=== PATIENT | female | born 1960 | race Caucasian/White ===

== ENCOUNTER 2022-07-29 19:26 | Emergency (ER) | payer BC, SELFPAY ==
[2022-07-29 19:33] VITALS: BP 168/91; PULSE 89; RESP 18; TEMP 36.4; O2SAT 95; BMI 33.6
--- NOTE | 2022-07-29 20:50 | ED_ITS ---
HPI - General Adult General Chief complaint: Ear Stated complaint: Left ear infection Time Seen by Provider: 07/29/22 20:41 Source: patient Mode of arrival: Ambulatory History of Present Illness HPI narrative: 62-year-old woman currently visiting with 3-4 days of mild upper respiratory symptoms of the stuffy nose, mild cough perhaps low-grade temperature today and over the last 48 hours has been having left ear pain. It started is not itching and now has gotten to be significantly worse to the point where the pain is making her nauseated. She has not had significant problems with inner ear issues. She has had success with sinus issues in in the past using saline sinus washes previously. She describes no chest pain, palpitations, abdominal pain, diarrhea. Related Data Previous Rx's Medication Instructions Recorded amoxicillin 500 mg capsule 500 mg PO TID #21 caps 07/29/22 Review of Systems Review of Systems Narrative: Remainder of complete review of systems is otherwise unremarkable except for that included in the HPI. Patient History Social History Smoking Status: Never smoker Smoking Status: Never smoker Exam Initial Vital Signs Initial Vital Signs: Vital Signs Temperature 97.6 F 07/29/22 19:33 Pulse Rate 89 07/29/22 19:33 Respiratory Rate 18 07/29/22 19:33 Blood Pressure 168/91 H 07/29/22 19:33 Pulse Oximetry 95 07/29/22 19:33 Oxygen Delivery Method 07/29/22 19:33 General: Alert appropriate in mild pain HEENT: Nasal congestion, left tympanic membrane is red and bulging without rupture or inner ear discharge, right TM is normal. There is no TMJ tenderness. She has no significant pharyngeal erythema or exudate. No cervical adenopathy. Respiratory: Able to speak in full sentences, no wheezing, no obvious respiratory distress Skin: No obvious rashes, warm and dry Neurologic: Grossly intact no obvious asymmetries or abnormalities Psych: appropriate insight and affect, cooperative Course Vital Signs Vital signs: Vital Signs - 8 hr 07/29/22 19:33 Temperature 97.6 F Pulse Rate 89 Respiratory Rate 18 Blood Pressure 168/91 H Pulse Oximetry 95 Oxygen Delivery Method Room Air Medical Decision Making [facility] Narrative Medical decision making narrative: 62-year-old woman with mild upper respiratory infection now with significant increasing left ear pain and low-grade fevers starting. Clinical exam is consistent with an acute otitis media. She has not tried any medications for pain so will have her use ibuprofen and Tylenol, she is given a 1st dose of amoxicillin in the emergency department and because she is feeling somewhat nauseated also given a dose of Zofran in the emergency department. A prescription for amoxicillin is provided and she is safe for home discharge Discharge Plan Departure Patient Disposition: Home Clinical Impression: Otitis media Instructions: DI for Middle Ear Infection-Adult Activity Restrictions/Additional Instructions: Thank you for coming in today. I am sorry you are suffering with this ear infection. Using 400 mg of ibuprofen (2 [id number] pills) and 1 Tylenol every 6 hours can be very helpful in controlling pain. Completing 7 days of amoxicillin for the acute ear infection will also be helpful. You may find that using a nasal saline wash will be helpful with your overall nasal congestion and helping your inner your drain sooner so your pain is less and your healing is faster If you find that you are getting worse or develop any new symptoms, please feel free to return to the emergency department for further evaluation. Prescriptions: New amoxicillin 500 mg capsule 500 mg PO TID Qty: 21 0RF
[2022-07-29] MEDS: IBUPROFEN 400 MG TABLET PO (20:55)
[2022-07-29] MEDS: ACETAMINOPHEN 325 MG TABLET PO (20:55)
[2022-07-29] MEDS: AMOXICILLIN 250 MG CAPSULE 500 MG PO (20:55)
[2022-07-29] MEDS: ONDANSETRON 4 MG ODT SL (20:55)
== END 2022-07-29 21:01 | disposition home or self-care (01) ==
PROVIDERS: Emergency Provider Emergency Medicine
DX: H66.92 Otitis media, unspecified, left ear (principal)
CPT/HCPCS: 99283

== ENCOUNTER 2022-08-14 18:09 | Emergency (ER) | payer BC, SELFPAY ==
[2022-08-14 18:25] VITALS: BP 147/72; PULSE 87; RESP 16; TEMP 36.9; O2SAT 99; BMI 32.9
[2022-08-14] MEDS: AMOXICILLIN/CLAV 875/125 MG 1 TAB PO (19:17)
[2022-08-14] MEDS: KETOROLAC 30 MG/ML VIAL 15 MG IM (19:18)
[2022-08-14] MEDS: DEXAMETHASONE 10 MG/ML VIAL PO (19:18)
[2022-08-14] MEDS: BACITRACIN OINT 0.9 GM PCKT 1 APPLIC TOP (19:18)
[2022-08-14 19:34] VITALS: BP 138/71; PULSE 80; RESP 20; TEMP 36.6; O2SAT 98
--- NOTE | 2022-08-14 20:21 | ED_ITS ---
HPI - Ear Problem <JOSE DE JESUS Carrillo - Last Filed: 08/14/22 20:28> General Chief complaint: Ear Stated complaint: Lt. ear infection/RT. index finger infected Time Seen by Provider: 08/14/22 18:55 Source: patient Mode of arrival: Ambulatory History of Present Illness HPI Narrative: This is a 62-year-old female who returns to the emergency department for worsening left ear pain after being seen on 07/29/2022 and prescribed amoxicillin x7 days for left acute otitis media. She also complains of a sore throat which has been swollen with exudate on her tonsils for at least 1 week. She states that she has been taking care of a 3-year-old and is here on vacation from [place]. Both of her ears have started to hurt and her throat pain has been ongoing. She denies fever or chills but states that she has had pretty significant pain and feels ill. She denies any cough or runny nose. She denies any vomiting or diarrhea. Related Data Previous Rx's Medication Instructions Recorded amoxicillin 500 mg capsule 500 mg PO TID #21 caps 07/29/22 amoxicillin 875 mg-potassium 1 tab PO BID 10 days #20 tabs 08/14/22 clavulanate 125 mg tablet doxycycline hyclate 100 mg tablet 100 mg PO BID for worsening finger 08/14/22 infection 7 days #14 tabs fluticasone propionate 50 1 spray intranasal BID PRN nasal 08/14/22 mcg/actuation nasal congestion #16 grams spray,suspension ketorolac 10 mg tablet 10 mg PO TID PRN pain 5 days #14 08/14/22 tabs mupirocin 2 % topical ointment 1 applic topical BID 1 week #15 08/14/22 grams Review of Systems <JOSE DE JESUS Carrillo - Last Filed: 08/14/22 20:28> Review of Systems Narrative: Review of systems is negative for acute abnormalities unless otherwise noted in HPI Patient History <JOSE DE JESUS Carrillo - Last Filed: 08/14/22 20:28> Social History Smoking Status: Never smoker Smoking Status: Never smoker alcohol intake frequency: 0-2 drinks per day Substance Use Type: does not use Exam <JOSE DE JESUS Carrillo - Last Filed: 08/14/22 20:28> Narrative Exam Narrative: Reviewed vitals signs and nursing notes. General: cooperative, comfortable, in no acute distress, well groomed HEENT: symmetrical facial expressions, moist mucous membranes, posterior pharynx with erythema, tonsillar adenopathy with exudate, mild anterior cervical lymphadenopathy, throat culture obtained and is pending, no mastoid tenderness bilaterally, right TM with normal landmarks but appears to have a middle ear effusion with a bulging TM, erythema surrounding the TM but clear fluid behind TM, left TM is bulging, suppurative, erythematous, without rupture or drainage Cardiovascular: regular rate and rhythm, no peripheral edema, warm extremities Respiratory: normal effort, able to speak in complete sentences, without wheezing, stridor, or abnormal breath sounds. No retractions or tachypnea. GI: abdomen soft, nontender to palpation, nondistended, without masses, rebound tenderness or exquisite tenderness with exam. MSK: moves all extremities, neurovascularly intact, no weakness, normal tone Skin: brisk capillary refill, without pallor or erythema Neuro: normal speech and cognition, A&O x3, ambulatory, clear speech Psych: mental status is grossly normal, congruent mood, normal affect, pleasant and cooperative Initial Vital Signs Initial Vital Signs: Vital Signs Temperature 98.5 F 08/14/22 18:25 Pulse Rate 87 08/14/22 18:25 Respiratory Rate 16 08/14/22 18:25 Blood Pressure 147/72 H 08/14/22 18:25 Pulse Oximetry 99 08/14/22 18:25 Oxygen Delivery Method 08/14/22 18:25 <Gabrielle Bobo DO - Last Filed: 08/15/22 01:31> Initial Vital Signs Initial Vital Signs: Vital Signs Temperature 98.5 F 08/14/22 18:25 Pulse Rate 87 08/14/22 18:25 Respiratory Rate 16 08/14/22 18:25 Blood Pressure 147/72 H 08/14/22 18:25 Pulse Oximetry 99 08/14/22 18:25 Oxygen Delivery Method 08/14/22 18:25 Course <JOSE DE JESUS Carrillo - Last Filed: 08/14/22 20:28> Orders Ordered: ED Orders 08/14/22 19:19 Throat Culture Stat Discontinued Medications Amoxicillin/Clavulanate Potassium (Amoxicillin/Clav 875/125 Mg) 1 tab PO NOW ONE Stop: 08/14/22 19:05 Last Admin: 08/14/22 19:17 Dose: 1 tab Documented By: VERITO Bacitracin (Bacitracin Oint 0.9 Gm Pckt) 1 applic TOP NOW ONE Stop: 08/14/22 19:05 Last Admin: 08/14/22 19:18 Dose: 1 applic Documented By: VERITO Dexamethasone (Dexamethasone 10 Mg/Ml Vial) 10 mg PO NOW ONE Stop: 08/14/22 19:09 Last Admin: 08/14/22 19:18 Dose: 10 mg Documented By: VERITO Ketorolac Tromethamine (Ketorolac 30 Mg/Ml Vial) 15 mg IM NOW ONE Stop: 08/14/22 19:09 Last Admin: 08/14/22 19:18 Dose: 15 mg Documented By: VERITO Vital Signs Vital signs: Vital Signs - 8 hr 08/14/22 18:25 08/14/22 19:34 Temperature 98.5 F 97.8 F Pulse Rate 87 80 Respiratory Rate 16 20 Blood Pressure 147/72 H 138/71 Pulse Oximetry 99 98 Oxygen Delivery Method Room Air Room Air <Gabrielle Bobo, - Last Filed: 08/15/22 01:31> Orders Ordered: ED Orders 08/14/22 19:19 Throat Culture Stat Discontinued Medications Amoxicillin/Clavulanate Potassium (Amoxicillin/Clav 875/125 Mg) 1 tab PO NOW ONE Stop: 08/14/22 19:05 Last Admin: 08/14/22 19:17 Dose: 1 tab Documented By: VERITO Bacitracin (Bacitracin Oint 0.9 Gm Pckt) 1 applic TOP NOW ONE Stop: 08/14/22 19:05 Last Admin: 08/14/22 19:18 Dose: 1 applic Documented By: VERITO Dexamethasone (Dexamethasone 10 Mg/Ml Vial) 10 mg PO NOW ONE Stop: 08/14/22 19:09 Last Admin: 08/14/22 19:18 Dose: 10 mg Documented By: VERITO Ketorolac Tromethamine (Ketorolac 30 Mg/Ml Vial) 15 mg IM NOW ONE Stop: 08/14/22 19:09 Last Admin: 08/14/22 19:18 Dose: 15 mg Documented By: VERITO Vital Signs Vital signs: Vital Signs - 8 hr 08/14/22 18:25 08/14/22 19:34 Temperature 98.5 F 97.8 F Pulse Rate 87 80 Respiratory Rate 16 20 Blood Pressure 147/72 H 138/71 Pulse Oximetry 99 98 Oxygen Delivery Method Room Air Room Air Medical Decision Making <Ester Singh [employer] - Last Filed: 08/14/22 20:28> Lab Data Labs: Point of Care Testing Rapid Strep A Negative Point of care testing: Point of Care Testing Rapid Strep A Negative MDM Narrative Medical decision making narrative: This is a pleasant 62-year-old female presents to the emergency department with recurrent/ongoing left ear pain status post treatment with amoxicillin for acute otitis media on 07/29/2022 for 7 days. She has had a sore throat with tonsillar adenopathy for 1.5 weeks, has been around a 3-year-old for the last week on vacation, her rapid strep was negative, throat culture obtained, exudate were on her bilateral tonsils. She states she has a history of strep throat. Her left TM is bulging, erythematous and suppurative, right TM is bulging with with effusion and patient complains of bilateral ear pain, without mastoid tenderness. Patient was given Augmentin in the emergency department, she was prescribed fluticasone for likely eustachian tube dysfunction, Toradol for pain, mupirocin for a scab on her right index finger which she states is likely a burn and is isolated to the distal fingertips without streaking or signs of spreading, and she was given Decadron in the emergency department for throat pain and left ear pain. She states she is flying [employer] in 3 days in his concerned about this flight with this middle ear effusion and left otitis media. Patient was treated with Augmentin b.i.d. times 10 days for failure on amoxicillin for otitis media, she likely has pharyngitis, this could be a form of strep, H influenzae, or other bacterial infection. Patient understands to return to the emergency department for any worsening of her symptoms, she is traveling back to [place] in 3 days. Patient is appropriate and amenable to discharge home. Vital signs are stable on repeat examination is unremarkable. Patient has been informed of results. Patient has been given strict return to ER precautions for any new or worsening symptoms. Patient understands to follow up closely with outpatient providers as instructed. Patient understands plan and agrees to discharge home. All questions and concerns answered at this time. #66: Appropriate Testing for Patients with Pharyngitis [x] The patient has acute pharyngitis/tonsillitis. The patient was prescribed antibiotics today and a strep test or culture was performed. [SATISFIES MIPS PERFORMANCE] [] The patient has acute pharyngitis/tonsillitis and was prescribed antibiotics today. A strep test or culture was not performed because the patient meets one of the following: [MIPS PERFORMANCE EXCE PTION/EXCLUSION] [] Patient received a competing diagnosis. The patient?s competing diagnosis is [] (e.g. acute otitis media, chronic sinusitis, cellulitis, etc.) [x] Patient is currently on antibiotics or has been in the last 30 days. [] Patient had a competing comorbid condition within the last 12 months. The patient?s comorbid condition is [] (e.g., tuberculosis, neutropenia, cystic fibrosis, chronic bronchitis, pulmonary edema, respiratory failure, rheumatoid lung disease) [] The patient has acute pharyngitis/tonsillitis. The patient was prescribed antibiotics today and a strep test or culture was not performed. [DOES NOT SATISFY MIPS PERFORMANCE] <Gabrielle Bobo, DO - Last Filed: 08/15/22 01:31> Lab Data Labs: Point of Care Testing Rapid Strep A Negative Point of care testing: Point of Care Testing Rapid Strep A Negative Discharge Plan Departure Patient Disposition: Home Clinical Impression: Otitis media Qualifiers: Otitis media type: suppurative Chronicity: acute Laterality: left Recurrence: recurrent Spontaneous tympanic membrane rupture: without spontaneous rupture Qualified Code(s): H66.005 - Acute suppurative otitis media without spontaneous rupture of ear drum, recurrent, left ear Pharyngitis Qualifiers: Pharyngitis/tonsillitis etiology: unspecified etiology Qualified Code(s): J02.9 - Acute pharyngitis, unspecified Instructions: Strep Throat, Middle Ear Infection Activity Restrictions/Additional Instructions: *You have been diagnosed with a left ear infection, this is likely related to your sore throat, a throat culture that we obtained today will grow out over the next 2 days. We will call you if we need to change her antibiotics. I am giving you 10 days of Augmentin for strep throat/recurrent otitis media. Please take this antibiotic in his entirety, please use Toradol instead of ibuprofen at this time for pain control, you may take 650 mg of Tylenol every 6 hours in addition to this. Please take the doxycycline only if you have worsening infection of the finger wound, meaning if you notice streaking up your finger, it becomes swollen and more red and painful, please start taking the doxycycline. Follow-up with your primary doctor back in [place]. Stay hydrated, come back for any worsening of your symptoms. I hope you feel better soon. *What to do: *Please continue to take your regular medications as directed. [x ] New medication prescriptions sent to your pharmacy: [[facility] ] [ ] New medication written as a paper prescription [ ] No new medications given *Please follow up with your primary care provider in 2-3 days, call for an appointment. Let them know you were seen in the Emergency Department and that we asked that you be seen for follow-up. We will electronically transmit a record of today's note if your PCP is in our system *If you do not have a primary care provider please contact [phone] to establish care with one of [facility] primary care providers. *Return to Emergency Department if you should have any new, worsening, or concerning symptoms, such as [fever greater than 101F, chills, worsening pain, persistent vomiting or other bothersome symptoms]. Prescriptions: New fluticasone propionate 50 mcg/actuation spray,suspension 1 spray intranasal BID PRN (Reason: nasal congestion) Qty: 16 0RF Rx Instructions: administer into each nostril amoxicillin-pot clavulanate 875-125 mg tablet 1 tab PO BID 10 Days Qty: 20 0RF ketorolac 10 mg tablet 10 mg PO TID PRN (Reason: pain) 5 Days Qty: 14 0RF mupirocin 2 % ointment 1 applic topical BID 7 Days Qty: 15 0RF doxycycline hyclate 100 mg tablet 100 mg PO BID 7 Days Qty: 14 0RF No Action amoxicillin 500 mg capsule 500 mg PO TID Qty: 21 0RF Visit Report Forms: Patient Portal/API <Gabrielle Bobo DO - Last Filed: 08/15/22 01:31> Cosign ED Attending Patricia Attestation: I was immediately available in the department for consultation. Documentation has been reviewed. I agree with assessment and plan.
== END 2022-08-14 19:35 | disposition home or self-care (01) ==
PROVIDERS: Emergency Provider Nurse Practitioner Critical Care Medicine
DX: H66.005 Acute suppurative otitis media without spontaneous rupture of ear drum, recurrent, left ear (principal); J02.9 Acute pharyngitis, unspecified
CPT/HCPCS: 87070; 87880; 96372; 99283; 99284; J1100; J1885